=== PATIENT | female | born 1975 | race Two or more races ===

== ENCOUNTER 2019-04-10 17:21 | Emergency (ER) | payer MEDICAID ==
[~2019-04-10] VITALS: Ht 160 cm; Wt 91.2 kg
[2019-04-10 17:28] VITALS: BP 124/78
--- NOTE | 2019-04-10 17:35 | NUR ---
ED Nurse Note: patient walked into ED from home c/o boil on her lower back for 4 days with greenish drainage.patient reports she is taking keflex and bactrim. patient is alert awake x4 ambulatory, patient on a hospital gown.
--- NOTE | 2019-04-10 17:56 | Emergency Room Report ---
History of Present Illness General Chief Complaint: Skin Rash/Abscess Source: Patient Present Illness HPI Is a 43-year-old female presents after increased pain and discharge from low back area. Patient had gradual onset of worsening pain as well as increased drainage. She had been taking Bactrim as well as Keflex without any improvement. Denies prior history of diabetes. Denies prior HIV. She had been noticing drainage from the area for several days. She had previously been diagnosed with syphilis. Allergies: Coded Allergies: DIPHENHYDRAMINE (Verified Allergy, Severe, Rash, 04/10/19) Patient History Past Medical History: see triage record Last Menstrual Period: feb Now: No Reviewed Nursing Documentation: PMH: Agreed; PSxH: Agreed Nursing Documentation-PMH Past Medical History: No Stated History Review of Systems All Other Systems: negative except mentioned in HPI Physical Exam Vital Signs Date Time Temp Pulse Resp B/P (MAP) Pulse Ox O2 Delivery O2 Flow Rate FiO2 04/10/19 17:28 98.1 101 20 124/78 (93) 100 Room Air Sp02 EP Interpretation: reviewed, normal General Appearance: normal inspection, well appearing, no apparent distress, alert, obese, Chronically Ill Head: atraumatic ENT: normal ENT inspection, hearing grossly normal, normal voice Neck: normal inspection, full range of motion, supple, no bony tend Respiratory: normal inspection, lungs clear, normal breath sounds, no respiratory distress, no retraction, no wheezing Cardiovascular #1: regular rate, rhythm, no edema Gastrointestinal: normal inspection, normal bowel sounds, non tender, soft, no guarding, no hernia Genitourinary: no CVA tenderness Musculoskeletal: normal inspection, back normal, normal range of motion Neurologic: alert, oriented x3, responsive, speech normal, normal inspection Psychiatric: normal inspection, judgement/insight normal, mood/affect normal Skin: other - Large lesion to the lower back area area with induration and some purulent drainage. Medical Decision Making Last Vital Signs Date Time Temp Pulse Resp B/P (MAP) Pulse Ox O2 Delivery O2 Flow Rate FiO2 04/10/19 17:28 98.1 101 20 124/78 (93) 100 Room Air Dave Torres MD Apr 10, 2019 17:56
[2019-04-10] MEDS ORDERED: Vancomycin 1.5gm/NS Premix 275 ML IVPB ONE (18:00)
[2019-04-10] MEDS ORDERED: Piperacillin/Tazobactam 3.375 GM in NS 110 ML IVPB ONE (18:00)
[2019-04-10] MEDS ORDERED: Omnipaque-300 100ml vial INJ PRN (18:00)
[2019-04-10 18:27] LABS: BASOPHILS % (AUTO) 0.8 % (0.0-2.0); EOSINOPHILS % (AUTO) 3.8 % (0.0-3.0); HEMATOCRIT 32.1 % (37.0-47.0); HEMOGLOBIN 10.7 G/DL (12.0-16.0); LYMPHOCYTES % (AUTO) 38.2 % (20.0-45.0); MEAN CORPUSCULAR VOLUME 90 FL (80-99); NEUTROPHILS % (AUTO) 47.2 % (45.0-75.0); PLATELET COUNT 538 K/UL (150-450); RED BLOOD COUNT 3.58 M/UL (4.20-5.40); RED CELL DISTRIBUTION WIDTH 12.9 % (11.6-14.8); WHITE BLOOD COUNT 8.2 K/UL (4.8-10.8)
--- NOTE | 2019-04-10 18:43 | Consultation ---
History of Present Illness General Date patient seen: Apr 10, 2019 Reason for Hospitalization: Skin Rash/Abscess Present Illness HPI 43 year old homeless female presented to the ED at [facility] [place] evaluation of lower back wound with drainage. States has had a lower back midline wound for a few days and in the last 4-5 days noted drainage of purulent fluid. no n/v/f/c. otherwise well. notes pain from wound. has been placing dressings onto wound for drainage. came to ED for evaluation. surgery called to evaluate. no prior episodes. states usually follows up with her medical clinic [facility] [address] [facility] Allergies: Coded Allergies: DIPHENHYDRAMINE (Verified Allergy, Severe, Rash, 04/10/19) Patient History History Provided By: Patient, Medical Record Healthcare decision maker Resuscitation status Advanced Directive on File Past Medical/Surgical History Past Medical/Surgical History: (1) Carbuncle and furuncle of trunk Review of Systems Review of Symptoms General ROS: no weight loss or fever Psychological ROS: no depression or mood changes, no memory loss Ophthalmic ROS: no visual changes or eye irritation ENT ROS: no nasal congestion, hearing loss, dizziness Allergy and Immunology ROS: no allergic symptoms or urticaria Hematological and Lymphatic ROS: no swollen glands, unusual bleeding or bruising Endocrine ROS: no polyuria, polydipsia, weight changes, temperature intolerance Respiratory ROS: no cough, shortness of breath, or wheezing Cardiovascular ROS: no chest pain or dyspnea on exertion Gastrointestinal ROS: denies abdominal pain, bright red blood in stool. Musculoskeletal ROS: no myalgias or arthralgias Neurological ROS: no TIA or stroke symptoms Dermatological ROS: no new or changing skin lesions, rashes or pruritis Physical Exam Physical Exam General appearance: alert, cooperative, no distress, appears stated age Head: Normocephalic, without obvious abnormality, atraumatic Eyes: conjunctivae/corneas clear. PERRL, EOM's intact. Fundi benign Throat: Lips, mucosa, and tongue normal. Teeth and gums normal Neck: supple, symmetrical, trachea midline, no adenopathy, thyroid: not enlarged, symmetric, no tenderness/mass/nodules, no carotid bruit and no JVD Lungs: clear to auscultation bilaterally Heart: regular rate and rhythm, S1, S2 normal, no murmur, click, rub or gallop Abdomen: soft, non-tender. Bowel sounds normal. No masses, no organomegaly Extremities: extremities normal, atraumatic, no cyanosis or edema Pulses: 2+ and symmetric Skin: Skin color, texture, turgor normal. lower midline back 3cm x 3cm soft carbuncle, drainage spontaneous, minimal periwound cellulitis Neurologic: Grossly normal Last 24 Hour Vital Signs Date Time Temp Pulse Resp B/P (MAP) Pulse Ox O2 Delivery O2 Flow Rate FiO2 04/10/19 17:28 98.1 101 20 124/78 100 Room Air 04/10/19 17:28 98.1 101 20 124/78 (93) 100 Room Air Laboratory Tests Test 04/10/19 18:00 White Blood Count 8.2 K/UL (4.8-10.8) Red Blood Count 3.58 M/UL (4.20-5.40) L Hemoglobin 10.7 G/DL (12.0-16.0) L Hematocrit 32.1 % (37.0-47.0) L Mean Corpuscular Volume 90 FL (80-99) Mean Corpuscular Hemoglobin 29.8 PG (27.0-31.0) Mean Corpuscular Hemoglobin Concent 33.2 G/DL (32.0-36.0) Red Cell Distribution Width 12.9 % (11.6-14.8) Platelet Count 538 K/UL (150-450) H Mean Platelet Volume 5.1 FL (6.5-10.1) L Neutrophils (%) (Auto) 47.2 % (45.0-75.0) Lymphocytes (%) (Auto) 38.2 % (20.0-45.0) Monocytes (%) (Auto) 10.0 % (1.0-10.0) Eosinophils (%) (Auto) 3.8 % (0.0-3.0) H Basophils (%) (Auto) 0.8 % (0.0-2.0) Prothrombin Time Pending Prothromb Time International Ratio Pending Activated Partial Thromboplast Time Pending Sodium Level Pending Potassium Level Pending Chloride Level Pending Carbon Dioxide Level Pending Blood Urea Nitrogen Pending Creatinine Pending Estimat Glomerular Filtration Rate Pending Glucose Level Pending Calcium Level Pending Total Bilirubin Pending Aspartate Amino Transf (AST/SGOT) Pending Alanine Aminotransferase (ALT/SGPT) Pending Alkaline Phosphatase Pending Total Protein Pending Albumin Pending Globulin Pending Height (Feet): 5 Height (Inches): 3.00 Weight (Pounds): 201 Medications Current Medications Medications (Trade) Dose Ordered Sig/Duncan Route PRN Reason Start Time Stop Time Status Last Admin Dose Admin Iohexol (OMNIPAQUE-300 100ml) 100 ml NOW PRN INJ Radiology Procedure 04/10/19 18:00 04/12/19 17:52 Vancomycin/Sodium Chloride 275 ml @ 137.5 mls/ hr Q24H ONCE IVPB 04/10/19 18:00 04/10/19 19:59 Assessment/Plan Problem List: (1) Carbuncle and furuncle of trunk Assessment & Plan: 43F with lower midline back 3cm x 3cm soft carbuncle, drainage spontaneous, minimal periwound cellulitis. no fluctuance, tender, erythema, slough I discussed findings with patient, etiology, care plan. I offered drainage / excisional debridement of non viable tissue with given wound care plan for after care. patient declined at this time wound washed and dressings applied wound care instructions given to patient oral abx rx d/c planning follow up with her outpatient clinic this week for eval, monitoring, and cont care plan please give supplies upon discharge (gauze, tape, abx) keep area clean, wash daily and prn saturation hygiene care thank you ICD Codes: L02.229 - Furuncle of trunk, unspecified SNOMED: [id number] Lawson Stephenson Apr 10, 2019 18:42
[2019-04-10 18:48] LABS: ANION GAP 11 mmol/L (5-15); BLOOD UREA NITROGEN 9 mg/dL (7-18); CALCIUM 8.5 MG/DL (8.5-10.1); CARBON DIOXIDE 24 MMOL/L (21-32); CHLORIDE 106 MMOL/L (98-107); CREATININE 0.8 MG/DL (0.55-1.30); POTASSIUM 3.5 MMOL/L (3.5-5.1); SODIUM 141 MMOL/L (136-145)
[2019-04-10 18:49] LABS: INR 0.9 (0.9-1.1)
[2019-04-10 18:53] LABS: ALANINE AMINOTRANSFERASE 15 U/L (12-78); ALBUMIN 2.3 G/DL (3.4-5.0); ALBUMIN/GLOBULIN RATIO 0.4 (1.0-2.7); ALKALINE PHOSPHATASE 83 U/L (46-116); ASPARTATE AMINO TRANSFERASE 17 U/L (15-37); BILIRUBIN,TOTAL < 0.1 MG/DL (0.2-1.0)
[2019-04-10] MEDS ORDERED: VIBRAMYCIN100 MG ORAL (18:57)
[2019-04-10] MEDS ORDERED: CEPHALEXIN500 MG ORAL (18:57)
--- NOTE | 2019-04-10 19:20 | NUR ---
HAND-OFF: Report given to JOEY BERNAL. endorsed to dicharge patient with gauze.
[2019-04-10 21:55] VITALS: BP 126/83
--- NOTE | 2019-04-10 21:55 | NUR ---
ER DISCHARGE NOTE: Patient is cleared to be discharged per ERMD, pt is aox4, on room air, with stable vital signs. pt was given dc and prescription instructions, understanding of teachings was verablized by the pt. pt id band and iv site removed without complications. pt is able to ambulate with steady gait. pt took all belongings.
== END 2019-04-10 21:55 | disposition home or self-care (01) ==
LOC: EMR 17:55 → CANBEDREQ 19:10 → EMR 21:55
DX: M54.5 Low back pain (principal); E66.9 Obesity, unspecified; Z88.8 Allergy status to other drugs, medicaments and biological substances; Z68.35 Body mass index [BMI] 35.0-35.9, adult
CPT/HCPCS: 36415; 80053; 85025; 85610; 85730; 87040; 96365; 96366; 96368; J2543; J3370; Z7502; 99284